=== PATIENT | male | born 1970 | race Two or more races ===

== ENCOUNTER 2022-02-20 15:38 | Emergency (ER) | payer SELFPAY ==
[2022-02-20] VITALS (8 sets, daily range): BP systolic 98–175; BP diastolic 63–110; PULSE 77–95; RESP 16–18; TEMP 36.1; O2SAT 96–100; BMI 29.0
[2022-02-20] MEDS: Morphine 4 MG/ML Syringe IV (16:29)
[2022-02-20] MEDS: Ondansetron 4 MG/2 ML Vial IV (16:30)
--- NOTE | 2022-02-20 17:00 | EDS_ITS ---
HPI HPI - GI History of Present Illness Chief Complaint: Abd Pain Narrative Narrative: 51-year-old male presenting with epigastric pain. He states he has had pancreatitis in the past and he states it was 1 time bout 6 years ago. He does not related to drinking. He states [place] and has been having drinks over the course of this last week. Yesterday he had 3 beers and a couple of shots of tequila. Today he has acute onset epigastric pain. He has noted that he has had some intermittent abdominal pain over the course of the last 5 days but it is worse today. He does have nausea without vomiting. No fever or chills. He denies any abdominal surgeries in the past. [facility] Medical History (Reviewed 02/20/22 @ : by Dr. Carlos Guerra, ) Pancreatitis Home Medications NK 02/20/22 [History Last Taken Unknown] Allergy/AdvReac Type Severity Reaction Status Date / Time No Known Allergies Allergy Verified 02/20/22 15:41 Social History (Reviewed 02/20/22 @ : by Dr. Carlos Guerra, ) Smoking Status: Never smoker ROS ROS ED Constitutional Constitutional ED: Denies chills or fever(s) ENT ENT ED: Denies rhinorrhea or sore throat Cardiovascular Cardiovascular: Denies chest pain or palpitations Respiratory/Chest Respiratory/Chest: Denies cough or dyspnea Gastrointestinal Gastrointestinal: Reports abdominal pain and nausea Genitourinary Genitourinary ED: Denies dysuria or hematuria Musculoskeletal Musculoskeletal: Denies arthralgias or back pain Integumentary Denies abscess or Abrasions Neurologic Neurologic: Denies headache(s) or paresthesias Psychiatric Psychiatric: Denies anxiety or depression Endocrine Endocrinology: Denies polydipsia or polyphagia EXAM Physical Exam Const Vital Signs: 02/20/22 15:38 02/20/22 17:00 02/20/22 18:00 Temperature 97 F L Temperature Source Temporal Pulse Rate 77 Respiratory Rate 16 16 16 Blood Pressure 175/110 H Blood Pressure Mean 131 Pulse Ox 100 Oxygen Delivery Method Room Air Room Air Room Air Oxygen Flow Rate (L/min) 02/20/22 19:00 02/20/22 20:00 02/20/22 21:00 Temperature Temperature Source Pulse Rate 80 85 Respiratory Rate Blood Pressure 130/79 H 141/106 H Blood Pressure Mean 96 117 Pulse Ox 98 97 97 Oxygen Delivery Method Room Air Room Air Nasal Cannula Oxygen Flow Rate (L/min) 2 Positive well nourished General Appearance ED: NAD; Negative for pallor HEENT Reports TM's clear and moist mucous membranes normocephalic and atraumatic Tympanic Membrane ED: Yes TM's clear Eyes EOMs intact bilaterally General Eye ED: Negative for pale conjunctiva or scleral icterus Resp normal respiratory effort and clear to auscultation bilaterally Auscultation: Negative for rales, rhonchi or wheezes Cardio regular rate and regular rhythm GI Palpation: tender epigastric Back/Spine no CVA tenderness Neuro CN's II-XII intact bilaterally, moves all extremities and no sensory deficits noted Sensorium / Orientation: alert Psych mental status grossly normal Skin General Skin Exam: Negative for jaundice or pallor MDM MDM MDM Narrative Medical decision making narrative: Patient presenting with epigastric pain. He states he has a history of pancreatitis 6 years ago. Patient did not think it was related to alcohol. He has here from [facility] visiting family states he is having a couple of beers a day throughout this last week. Patient states that he had 3 beers and a couple shots of tequila yesterday and today has acute onset epigastric pain. He did appear to be in pain on exam. Patient ordered IV fluids, morphine, Zofran. I obtained blood work and his CBC shows a leukocytosis of 14.9. Hemoglobin and hematocrit are stable. Platelets are normal. CMP shows an elevated AST, however his ALT bilirubin and alkaline phosphatase are all normal. His glucose is 400 without anion gap. His sodium is low at 129 but I think this is correctable and is likely pseudohyponatremia. His lipase returned at 27,516. I obtained a CT of the abdomen pelvis which shows acute pancreatitis with small abscesses versus pseudocyst. I spoke with Dr. Kaplan who is on-call who stated that he would need to go to a different facility for treatment of this. We did have some delay in care because the patient has insurance which is not covered at some facilities due to [place] being from [place] the [place]. I did speak with [facility] and I spoke on the phone with Dr. Jaquez from the ER, [place] who is a general surgeon, Dr. Santana on a conference call in order to determine what was best for the patient. Dr. Atwood did not think there was anything acutely surgical. He did believe that these are likely cysts and not abscesses. He did have concern that the patient could decompensate and was recommending ICU admission. He did state that this could develop into necrotic areas and it is possible he could need surgical intervention. He recommended GI be involved as well. Dr. Santana did state that she felt this was medically emergent enough not to have to wait until tomorrow to verify the patient's insurance and they can deal with that on their end. They are currently moving patients out of the MICU and feel they will have a bed for him tonight. They recommended continued pain control and IV fluids. They did not want him to have any antibiotics currently. This was all discussed at length with he and his family. They are amenable to this transfer. Impression: 1. Acute pancreatitis 2. Pancreatic cysts 3. Hyperglycemia 4. Pseudohyponatremia 5. Leukocytosis Lab Data Attestation: I reviewed the patient's lab results. Labs: Laboratory Results - last 24 hr 02/20/22 02/20/22 16:17 16:17 WBC 14.9 H RBC 4.75 Hgb 14.0 Hct 40.0 MCV 84.2 MCH 29.5 MCHC 35.0 RDW Std Deviation 35.9 RDW Coeff of Erin 11.9 Plt Count 337 MPV 10.5 Immature Gran % (Auto) 2.100 H Neut % (Auto) 67.6 Lymph % (Auto) 23.1 Chambers % (Auto) 6.1 Eos % (Auto) 0.5 Baso % (Auto) 0.6 Absolute Neuts (auto) 10.1 H Absolute Lymphs (auto) 3.45 Nucleated RBC % 0 Sodium 129 L Potassium 5.4 H Chloride 97 L Carbon Dioxide 19.0 L Anion Gap 13 BUN 13 Creatinine 1.25 Estim Creat Clear Calc 94.93 Est GFR (MDRD) Af Amer 78 Est GFR (MDRD) Non-Af 65 BUN/Creatinine Ratio 10.4 Glucose 400 H Calcium 9.2 Total Bilirubin 0.70 Direct Bilirubin < 0.05 AST 81 H ALT TNP Alkaline Phosphatase 88 Total Protein 8.6 H Albumin 3.3 Globulin 5.3 H Lipase 03155 H Radiography Diagnostic Testing: Clinical Impression(s) from Imaging Studies Abdomen/Pelvis CT 02/20/22 17:00 IMPRESSION: Acute pancreatitis with small abscesses or pseudocysts. Electronically Signed: Juan Pablo Daly MD at 19:28 EST , Discharge Plan Triage Chief Complaint: Abd Pain ED Provider: Carlos Guerra Dx/Rx/DC Orders Prescriptions: No Action NK Primary Care Provider: Care Physician,No Primary Referrals: Care Physician,No Primary [Primary Care Provider] -
--- NOTE | 2022-02-20 17:00 | CT_ITS ---
STUDY: CT ABDOMEN AND PELVIS WITH CONTRAST REASON FOR EXAM: Male, 51 years old. abdominal pain RADIATION DOSAGE (If Supplied By Facility): CTDIvol = ( 20.40 ) mGy, DLP = ( 1933.69 ) mGycm TECHNIQUE: Transaxial images were obtained from the dome of the diaphragm to the symphysis pubis without oral contrast. IV 100mL Isovue-370 was administered. Sagittal and coronal images were reconstructed. Individualized dose optimization techniques were used for this CT. COMPARISON: None. FINDINGS: The visualized lung bases are unremarkable. The visualized portions of the heart are within normal limits. Normal liver. Normal gallbladder and extrahepatic biliary system. Normal spleen. There is diffuse enlargement of the pancreas with ritu-pancreatic edema suggesting acute pancreatitis. 2 cm fluid collection of the anterior margin of the tail of the pancreas consistent with a pseudocyst or abscess. Another 4 cm septated fluid collection of the anterior margin of the body the pancreas consistent with a pseudocyst or abscess. Normal bilateral adrenal glands. 4 cm exophytic cyst of the anterior cortex of the midsection the right kidney. Normal left kidney. Normal visualized stomach. Normal small intestine. Normal colon. The appendix is visualized and appears normal. Normal abdominal aorta. Normal inferior vena cava. Normal retroperitoneum. Normal urinary bladder. There is a small umbilical hernia containing fat. Normal osseous structures. CT/Abdomen/Pelvis W IV Cont ONLY IMPRESSION: Acute pancreatitis with small abscesses or pseudocysts. Electronically Signed: Juan Pablo Daly MD at 19:28 EST ,
[2022-02-20 17:19] LABS: Absolute Lymphocyte Count 3.45 X10^3/uL (0.83-4.51); Absolute Neutrophil Count 10.1 X10^3/uL (2.0-7.7); Basophil# 0.09 X10^3/uL; Basophil% 0.6 % (0-1); Eosinophil# 0.07 X10^3/uL; Eosinophils% 0.5 % (0-5); Lymphocyte # 3.45 X10^3/ul (0.83-4.51); Lymphocyte % 23.1 % (19-41); Mean Corpuscular Volume 84.2 fL (80-94); Mean Platelet Vol. 10.5 fl (6.2-12.0); Monocyte# 0.91 X10^3/uL; Monocyte% 6.1 % (0-10); NRBC Flagged by Analyzer 0 % (0-5); Neutrophil # 10.08 X10^3/uL (2.7-7.7); Neutrophil % 67.6 % (47-70); POSITIVE COUNT YES; Platelet Count 337 K/mm3 (150-450); RBC Distribution Width CV 11.9 % (11.6-14.6); RBC Distribution Width SD 35.9 fl (35.1-43.9); Red Blood Count 4.75 M/mm3 (4.6-6.2); White Blood Count 14.9 K/mm3 (4.4-11.0)
[2022-02-20 18:08] LABS: Mean Corpuscular Hgb 29.5 pg (27.0-32.0)
[2022-02-20 18:34] LABS: Albumin, Serum 3.3 g/dL (3.2-5.0); Alkaline Phosphatase 88 U/L (45-117); Anion Gap 13 (5-15); BUN 13 mg/dL (7-18); BUN/Creat Ratio 10.4 RATIO (10-20); Bilirubin, Direct < 0.05 mg/dL (0.00-0.30); Calcium,Total 9.2 mg/dL (8.5-10.1); Chloride 97 mmol/L (98-107); Creatinine, Serum 1.25 mg/dL (0.70-1.30); EST Glomerular Filtration Rate 65 mL/min (>60); Est Glom Filt Rate - Afr Amer 78 mL/min (>60); Estimated Creatinine Clearance 94.93 ml/min; Globulin 5.3 g/dL (2.2-4.2); Glucose 400 mg/dL (74-106); Potassium 5.4 mmol/L (3.5-5.1); Protein, Total 8.6 g/dL (6.4-8.2); Sodium Level 129 mmol/L (136-145)
[2022-02-20 19:26] LABS: AST(SGOT) 81 U/L (15-37); Lipase 27516 U/L (73-393)
[2022-02-20] MEDS: 0.9% Normal Saline 1,000 ML 999 ML IV (19:56)
[2022-02-20] MEDS: HYDROmorphone 1 MG/ML Syringe IV (20:36)
--- NOTE | 2022-02-20 21:07 | ED.RN ---
FAMILY AND PT MADE AWARE OF DELAYS IN HOSPITAL:HOSPITAL TRANSFER D/T INSURANCE ACCEPTANCE. THEY ARE AWARE THAT WE ARE WAITING FOR TO APPROVE OUR REQUEST FOR TRANSFER. THEY HAVE BEEN MADE AWARE THAT SPECIAL PERMISSION NEEDS TO BE OBTAINED WITHIN BEFORE WE ARE ABLE TO REQUEST PT XFER.
[2022-02-20] MEDS: 0.9% Normal Saline 1,000 ML 150 ML IV (22:41)
[2022-02-21] VITALS: BP 108/72; PULSE 91; RESP 18; O2SAT 96
--- NOTE | 2022-02-21 00:15 | ED.RN ---
PATIENT ACCEPTED TO [facility] @ [id number] CALVILLO
--- NOTE | 2022-02-21 00:17 | ED.RN ---
[facility] [id number]
[2022-02-21] MEDS: Ondansetron 4 MG/2 ML Vial IV (00:23)
[2022-02-21] MEDS: Morphine 4 MG/ML Syringe IV (00:23)
[2022-02-21 00:45] VITALS: BP 95/60; PULSE 86; RESP 18; O2SAT 95
== END 2022-02-21 01:43 | disposition short-term general hospital (02) ==
LOC: ED 16:39
PROVIDERS: Emergency Provider Student in an Organized Health Care Education/Training Program; Visit Provider Student in an Organized Health Care Education/Training Program
DX: K85.90 Acute pancreatitis without necrosis or infection, unspecified (principal); K86.2 Cyst of pancreas; R73.9 Hyperglycemia, unspecified; D72.829 Elevated white blood cell count, unspecified
CPT/HCPCS: 74177; 80048; 80076; 83690; 85025; 87811; 96361; 96374; 96375; 96376; 99283; J7030; Q9967; A4216; J2405